=== PATIENT | female | born 1990 | race Caucasian/White ===

== ENCOUNTER 2017-08-31 09:58 | Emergency (ER) | payer MEDICAID ==
[~2017-08-31] VITALS: Ht 154.9 cm; Wt 90.0 kg
[2017-08-31 10:00] VITALS: BP 126/67; PULSE 102; RESP 16; TEMP 98.6; O2SAT 98
== END 2017-08-31 11:10 | disposition left against medical advice (07) ==
LOC: NETRI 09:58
DX: L98.9 Disorder of the skin and subcutaneous tissue, unspecified (principal)
CPT/HCPCS: 99281